=== PATIENT | male | born 1975 | race African-American/Black ===

== ENCOUNTER 2018-04-23 06:46 | Emergency (ER) | payer MEDICAID ==
[~2018-04-23] VITALS: Ht 175.3 cm; Wt 65.8 kg
[2018-04-23 06:58] VITALS: BP 129/87
--- NOTE | 2018-04-23 07:07 | NUR ---
ED Nurse Note: Pt came in from home due to L sided ribs pain x 1 week and R 5th toe, get wore with movement. AOx4, VSS. WIll cont to monitor.
--- NOTE | 2018-04-23 07:35 | NUR ---
ED Nurse Note: Pt refused EKG, blood test, and chest X-ray, stated " Im not dying, Im just going to go home", ERMD aware and came to consult patient about the risk of leaving AMA but pt still decided to go home.
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
[2018-04-23 07:42] VITALS: BP 129/87
== END 2018-04-23 07:45 | disposition left against medical advice (07) ==
LOC: EMR 07:15
DX: R07.81 Pleurodynia (principal); J45.909 Unspecified asthma, uncomplicated
CPT/HCPCS: 99282